=== PATIENT | male | born 2000 | race Caucasian/White ===

== ENCOUNTER 2025-03-22 14:23 | Inpatient (IN) | payer OTHER ==
[~2025-03-22] VITALS: Ht 177.8 cm; Wt 81.4 kg
[2025-03-22 14:28] VITALS: O2SAT 100
[2025-03-22] MEDS ORDERED: LIDOCAINE HCL 1% 20ML VIAL INFIL ONE (15:00)
[2025-03-22] MEDS: LEVETIRACETAM 1000MG PREMIX 100 ML IV ONE (15:23)
[2025-03-22 15:37] LABS: BASOPHILS % 0.3 % (0.0-2.0); EOSINOPHILS % 0.4 % (0.0-5.0); HEMATOCRIT. 41.6 % (42.0-52.0); HEMOGLOBIN. 14.1 g/dL (14.0-18.0); LYMPHOCYTES % 30.4 % (20.0-50.0); MEAN PLATELET VOLUME 8.9 fl (7.4-10.4); MONOCYTES % 5.4 % (2.0-8.0); NEUTROPHILS % 63.5 % (40.0-76.0); PLATELET 188 x1000/uL (130-400); RED BLOOD CELL COUNT 4.70 mill/uL (4.7-6.1); RED CELL DISTRIBUTION WIDTH 13.2 % (11.6-14.6)
[2025-03-22] MEDS ORDERED: PANTOPRAZOLE 80 MG in SODIUM CHLORIDE 0.9% 100 ML IV ONE (15:45)
[2025-03-22 16:01] LABS: CREATININE 0.7 mg/dL (0.6-1.3)
[2025-03-22 16:02] LABS: ETHANOL BLOOD < 10 mg/dL (<10); UREA NITROGEN BLOOD 13 mg/dL (9-23)
[2025-03-22 16:03] LABS: ASPARTATE AMINOTRANSFERASE 23 IU/L (<34)
[2025-03-22 16:04] LABS: BILIRUBIN DIRECT 0.1 mg/dL (<=3.0); BILIRUBIN TOTAL 0.6 mg/dL (0.1-1.0); PROTEIN TOTAL 4.7 g/dL (6.0-8.3)
[2025-03-22] MEDS: KCL 20MEQ/100ML PREMIX 100 ML IV SCH (17:51)
[2025-03-22] MEDS: PANTOPRAZOLE 80 MG in SODIUM CHLORIDE 0.9% 100 ML IV SCH (17:51)
[2025-03-22] MEDS: METOCLOPRAMIDE HCL 10MG/2ML VIAL IV ONE (17:51)
[2025-03-22] MEDS: PANTOPRAZOLE SODIUM 40 MG/VIAL IV NR (17:51)
[2025-03-22] MEDS: MORPHINE SULFATE 2 MG/ML INJ (NOT FOR IM USE) IV ONE (17:52)
[2025-03-22 19:07] VITALS: BP 130/61; PULSE 53; RESP 16; TEMP 36.1; O2SAT 100
[2025-03-22 22:07] VITALS: BP 95/40; PULSE 53; RESP 18; TEMP 36.5292
[2025-03-22] MEDS ORDERED: IOHEXOL-300 100 ML BOTTLE ONE (22:32)
[2025-03-23] VITALS: BP 102/60; PULSE 72; RESP 17; TEMP 36.7; O2SAT 98
[2025-03-23] MEDS ORDERED: LORAZEPAM 2MG/ML UD SYRINGE IV PRN (00:45)
[2025-03-23 04:00] VITALS: BP 110/50; PULSE 70; RESP 18; TEMP 36.7; O2SAT 100
[2025-03-23 08:00] VITALS: BP 119/70; PULSE 68; RESP 16; TEMP 36.6; O2SAT 100
[2025-03-23] MEDS: LEVETIRACETAM 500MG TABLET PO SCH (09:43)
[2025-03-23 12:00] VITALS: BP 112/66; PULSE 65; RESP 16; TEMP 36.4; O2SAT 100
== END 2025-03-23 17:20 | disposition left against medical advice (07) | DRG 101 ==
LOC: ER 14:23 → EDBEDREQTM 17:25 → EDBEDREQ 17:25 → ENRESERV 17:45 → 6WST 19:19
PROVIDERS: ADMIT Internal Medicine; ATTEND Internal Medicine
DX: G40.909 Epilepsy, unspecified, not intractable, without status epilepticus (principal); E87.0 Hyperosmolality and hypernatremia; T18.2XXA Foreign body in stomach, initial encounter; E87.6 Hypokalemia; Z53.21 Procedure and treatment not carried out due to patient leaving prior to being seen by health care provider; Y93.89 Activity, other specified; W44.8XXA Other foreign body entering into or through a natural orifice, initial encounter; Y92.89 Other specified places as the place of occurrence of the external cause; Y99.8 Other external cause status
CPT/HCPCS: 36415; 74177; 80048; 80076; 80320; 85025; 93005; 96365; 96367; 96375; 99291; A4606; J1953; J2270; J2470; J2765; J3480; J7050; Q9967; G0480